=== PATIENT | female | born 1985 | race Two or more races ===

== ENCOUNTER 2023-05-09 11:45 | Inpatient (IN) | payer OTHER ==
[~2023-05-09] VITALS: Ht 167.6 cm; Wt 61.2 kg
[2023-05-15 15:54] LABS: HEMATOCRIT 36.9 % (36.0-45.00); HEMOGLOBIN 12.4 g/dL (12.0-15.00); MEAN CELL VOLUME 89.5 fL (80.00-100.00); MEAN CORPUSCULAR HEMOGLOBIN 30.1 pg (27.00-32.0); MEAN CORPUSCULAR HGB CONC 33.6 g/dl (32.0-36.0); PLATELET COUNT 191 K/uL (150-450); RED BLOOD COUNT 4.12 M/uL (4.00-6.00); RED CELL DISTRIBUTION WIDTH 13.3 % (11.5-14.5)
[2023-05-18] MEDS ORDERED: NAPR500T14 PO (14:27)
[2023-05-18] MEDS ORDERED: OXYC1TAB9 PO (14:27)
[2023-05-18] MEDS ORDERED: COLACE100 MG PO (14:27)
== END 2023-05-18 14:55 | disposition home or self-care (01) | DRG 743 ==
LOC: O/R 05-15 08:21 → SURG 05-15 11:45 → OB/GYN 05-15 14:23 → SURG 05-15 17:15 → OB/GYN 05-18 14:55
PROVIDERS: ADMIT Obstetrics & Gynecology; ATTEND Obstetrics & Gynecology
PROC: 0UT70ZZ Resection of Bilateral Fallopian Tubes, Open Approach (ICD-10-PCS; 2023-05-15)
PROC: 0UT20ZZ Resection of Bilateral Ovaries, Open Approach (ICD-10-PCS; 2023-05-15)
PROC: 0DNW0ZZ Release Peritoneum, Open Approach (ICD-10-PCS; 2023-05-15)
PROC: 0TJB8ZZ Inspection of Bladder, Via Natural or Artificial Opening Endoscopic (ICD-10-PCS; 2023-05-15)
PROC: 0UT90ZZ Resection of Uterus, Open Approach (ICD-10-PCS; principal; 2023-05-15 17:15)
DX: D25.2 Subserosal leiomyoma of uterus (principal); N72 Inflammatory disease of cervix uteri; Z20.822 Contact with and (suspected) exposure to COVID-19

== ENCOUNTER 2023-05-14 13:22 | Outpatient (CLI) | payer OTHER | END 2023-05-14 13:23 | disposition home or self-care (01) | LOC: LAB 13:22 | PROVIDERS: ATTEND Obstetrics & Gynecology | DX: N91.1 Secondary amenorrhea (principal); Z03.818 Encounter for observation for suspected exposure to other biological agents ruled out ==